=== PATIENT | female | born 1990 | race Two or more races ===

== ENCOUNTER 2018-06-28 15:11 | Emergency (ER) | payer SELFPAY ==
[~2018-06-28] VITALS: Ht 162.6 cm; Wt 84.0 kg
[2018-06-28 16:31] LABS: BASOPHILS % 0.5 % (0.0-2.0); EOSINOPHILS % 1.2 % (0.0-5.0); HEMATOCRIT. 43.5 % (36.0-48.0); HEMOGLOBIN. 14.6 g/dL (12.0-16.0); LYMPHOCYTES % 23.2 % (20.0-50.0); MEAN CORPUSCULAR HEMOGLOBIN 30.8 pg (28.0-32.0); MEAN CORPUSCULAR VOLUME 92.1 fL (81.0-99.0); MEAN PLATELET VOLUME 8.6 fl (7.4-10.4); MONOCYTES % 4.3 % (2.0-8.0); NEUTROPHILS % 70.8 % (40.0-76.0); PLATELET 396 x1000/uL (130-400); RED BLOOD CELL COUNT 4.73 mill/uL (4.2-5.4)
[2018-06-28 16:35] LABS: CHLORIDE 100 mEq/L (98-107)
[2018-06-28 16:38] LABS: INR 0.9; PROTHROMBIN TIME 9.5 sec (9.1-11.1)
[2018-06-28 16:39] LABS: HCG SCREEN NEGATIVE
[2018-06-28 17:09] LABS: CLARITY URINE CLEAR (CLEAR); COLOR URINE YELLOW (YELLOW); KETONES URINE NEGATIVE (NEGATIVE); LEUKOCYTE ESTERASE URINE NEGATIVE (NEGATIVE); NITRITE URINE NEGATIVE (NEGATIVE); OCCULT BLOOD URINE NEGATIVE (NEGATIVE); PH URINE 5.5 (4.5-8.0); PROTEIN URINE NEGATIVE (NEGATIVE); SPECIFIC GRAVITY URINE 1.045 (1.005-1.030); UROBILINOGEN URINE 0.2 E.U./dL (0.2-1.0)
[2018-06-28] MEDS ORDERED: SODIUM CHLORIDE 0.9% 1,000 ML IV ONE (17:27)
[2018-06-28] MEDS ORDERED: METFORMIN HCL 500MG TABLET PO ONE (17:30)
[2018-06-28 20:22] VITALS: BP 116/94
== END 2018-06-28 20:26 | disposition home or self-care (01) ==
LOC: ER 15:11
DX: E11.65 Type 2 diabetes mellitus with hyperglycemia (principal); N92.6 Irregular menstruation, unspecified; R10.9 Unspecified abdominal pain; Z88.0 Allergy status to penicillin
CPT/HCPCS: 36415; 80053; 81003; 82962; 83690; 83735; 84100; 84703; 85025; 85610; 93005; 96360; 99285; J7030

== ENCOUNTER 2018-09-12 13:34 | Emergency (ER) | payer BC ==
[~2018-09-12] VITALS: Ht 162.6 cm; Wt 82.0 kg
[2018-09-12 16:28] LABS: CHLORIDE 100 mEq/L (98-107); PROTHROMBIN TIME 9.7 sec (9.1-11.1)
[2018-09-12 16:29] LABS: CLARITY URINE CLEAR (CLEAR); COLOR URINE YELLOW (YELLOW); KETONES URINE NEGATIVE (NEGATIVE); LEUKOCYTE ESTERASE URINE NEGATIVE (NEGATIVE); NITRITE URINE NEGATIVE (NEGATIVE); OCCULT BLOOD URINE 2+ (NEGATIVE); PH URINE 6.5 (4.5-8.0); PROTEIN URINE NEGATIVE (NEGATIVE); SPECIFIC GRAVITY URINE 1.022 (1.005-1.030); UROBILINOGEN URINE 0.2 E.U./dL (0.2-1.0)
[2018-09-12 16:29] LABS: BASOPHILS % 0.3 % (0.0-2.0); EOSINOPHILS % 0.6 % (0.0-5.0); HEMATOCRIT. 40.6 % (36.0-48.0); HEMOGLOBIN. 13.8 g/dL (12.0-16.0); MEAN CORPUSCULAR HEMOGLOBIN 31.6 pg (28.0-32.0); MEAN CORPUSCULAR VOLUME 92.7 fL (81.0-99.0); MEAN PLATELET VOLUME 8.2 fl (7.4-10.4); MONOCYTES % 4.3 % (2.0-8.0); NEUTROPHILS % 75.8 % (40.0-76.0); PLATELET 373 x1000/uL (130-400); RED BLOOD CELL COUNT 4.38 mill/uL (4.2-5.4); RED CELL DISTRIBUTION WIDTH 13.1 % (11.6-14.6)
[2018-09-12 17:06] LABS: B-HCG QUANTITATIVE 46324 mIU/mL (<3)
[2018-09-12] MEDS ORDERED: ACETAMINOPHEN 325MG TABLET PO ONE (17:15)
[2018-09-12 18:38] VITALS: BP 128/76
[2018-09-12 20:51] LABS: HCG SCREEN POSITIVE
== END 2018-09-12 18:32 | disposition home or self-care (01) ==
LOC: ER 13:34
DX: O20.0 Threatened abortion (principal); O24.911 Unspecified diabetes mellitus in pregnancy, first trimester; Z3A.10 10 weeks gestation of pregnancy; Z90.89 Acquired absence of other organs; Z88.0 Allergy status to penicillin
CPT/HCPCS: 36415; 76801; 81025; 84702; 84703; 86850; 86900; 99284